=== PATIENT | male | born 1945 | race Caucasian/White ===

== ENCOUNTER → 2019-10-25 | Outpatient (CLI) | payer OTHER ==
[~2019-10-25] MED LIST: FURO40TA5 PO; FURO40TA7 PO; GLIM4TAB36 PO; METO50TA18 PO; RIVA15TA PO; ROSU5TAB PO; SAXA1TBM2 PO
== END | disposition home or self-care (01) ==
LOC: SHCH 11:24
PROVIDERS: ATTEND Internal Medicine Cardiovascular Disease
DX: R06.09 Other forms of dyspnea (principal); I48.0 Paroxysmal atrial fibrillation
CPT/HCPCS: 93306

== ENCOUNTER → 2019-11-01 | Outpatient (CLI) | payer OTHER ==
[~2019-11-01] MED LIST changes: +REGADENOSON 0.4 MG/5 ML PF SYG IVP SCH
== END | disposition home or self-care (01) ==
LOC: SHCH 07:51
PROVIDERS: ATTEND Internal Medicine Cardiovascular Disease
DX: R06.09 Other forms of dyspnea (principal); I48.91 Unspecified atrial fibrillation
CPT/HCPCS: 78452; 93017; 96374; A9500 ×2; J2785

== ENCOUNTER → 2019-12-29 | Outpatient (CLI) | payer OTHER ==
[~2019-12-29] MED LIST changes: -REGADENOSON 0.4 MG/5 ML PF SYG IVP SCH
== END | disposition home or self-care (01) ==
LOC: RAH 09:24
PROVIDERS: ATTEND Urology
DX: K80.20 Calculus of gallbladder without cholecystitis without obstruction (principal); K59.00 Constipation, unspecified; I70.0 Atherosclerosis of aorta; C64.1 Malignant neoplasm of right kidney, except renal pelvis; Z90.5 Acquired absence of kidney
CPT/HCPCS: 74176

== ENCOUNTER 2020-01-16 15:39 | Inpatient (IN) | payer OTHER ==
[~2020-01-16] VITALS: Ht 177.8 cm; Wt 103.8 kg
[2020-01-16] MEDS ORDERED: ASPIRIN 325 MG TABLET ONE (15:56)
[2020-01-16 16:10] LABS: BASOPHILS % (AUTO) 0.5 % (0.0-5.0); EOSINOPHILS % (AUTO) 2.9 % (0.0-8.0); HEMATOCRIT 37.2 % (42-54); LYMPHOCYTES % (AUTO) 23.2 % (21.0-51.0); MEAN CORPUSCULAR HEMOGLOBIN 30.4 pg (27.0-33.0); MEAN CORPUSCULAR HGB CONC 32.8 g/dL (32.0-36.0); MEAN CORPUSCULAR VOLUME 92.8 fL (79-99); MONOCYTES % (AUTO) 10.4 % (3.0-13.0); NEUTROPHILS % (AUTO) 62.6 % (40.0-77.0); PLATELET COUNT (AUTO) 183 K/uL (130-400); RED BLOOD CELL COUNT(AUTO) 4.01 MIL/uL (4.50-6.20); RED CELL DISTRIBUTION WIDTH 13.5 % (11.0-15.5)
[2020-01-16 16:28] LABS: CREATININE 2.5 mg/dL (0.5-1.5); POTASSIUM 5.7 mmol/L (3.5-5.1)
[2020-01-16 16:31] LABS: INR 1.07 (0.85-1.15); PROTHROMBIN TIME 11.5 SEC (9.6-11.6)
[2020-01-16 16:32] LABS: ALBUMIN 4.8 g/dL (3.5-5.0); BILIRUBIN,TOTAL 0.9 mg/dL (0.2-1.0); TOTAL PROTEIN, SERUM 7.7 g/dL (6.0-8.3)
[2020-01-16 17:54] LABS: B-TYPE NATRIURETIC PEPTIDE 124 pg/mL (0-100)
[2020-01-16] MEDS ORDERED: NITROGLYCERIN 1GM/1 INCH PACKET TD ONE (18:55)
[2020-01-16] MEDS ORDERED: ONDANSETRON HCL 4 MG/2 ML VIAL IVP PRN (19:00)
[2020-01-16] MEDS ORDERED: ACETAMINOPHEN 325 MG TAB PO PRN (19:00)
[2020-01-16] MEDS ORDERED: HYDRALAZINE HCL 20 MG/ML VIAL IV PRN (19:00)
[2020-01-16] MEDS ORDERED: SODIUM CHLORIDE 0.9% 1000ML 1,000 ML IV SCH (19:00)
[2020-01-16] MEDS ORDERED: NITROGLYCERIN 1GM/1 INCH PACKET TD SCH (19:00)
[2020-01-16] MEDS ORDERED: ENOXAPARIN SODIUM 100 MG/1 ML SQ SCH (21:00)
[2020-01-17 00:02] LABS: APPEARANCE,URINE SLIGHTLY CLOUDY (CLEAR); BILIRUBIN,URINE Moderate (NEGATIVE); COLOR,URINE Dark Yellow (YELLOW); GLUCOSE, URINE (UA) Negative (NEGATIVE); KETONES,URINE 15 mg/dL (NEGATIVE); LEUKOCYTE ESTERASE ,URINE Moderate (NEGATIVE); NITRATE,URINE Negative (NEGATIVE); OCCULT BLOOD,URINE Negative (NEGATIVE); PROTEIN,URINE POS 1+ mg/dL (NEGATIVE)
[2020-01-17 00:16] LABS: BACTERIA,URINE None Seen /HPF (None Seen); MUCUS,URINE Rare LPF (None Seen); RBC,URINE None Seen /HPF (0-1); SQUAMOUS EPITHELIAL CELL,UR Few /HPF (0-2)
[2020-01-17 05:16] LABS: CREATININE 2.4 mg/dL (0.5-1.5); POTASSIUM 5.7 mmol/L (3.5-5.1)
[2020-01-17 05:21] LABS: ALBUMIN 4.2 g/dL (3.5-5.0); TOTAL PROTEIN, SERUM 6.7 g/dL (6.0-8.3)
[2020-01-17 05:31] LABS: BASOPHILS % (AUTO) 0.5 % (0.0-5.0); EOSINOPHILS % (AUTO) 3.2 % (0.0-8.0); HEMATOCRIT 35.1 % (42-54); LYMPHOCYTES % (AUTO) 26.9 % (21.0-51.0); MEAN CORPUSCULAR HEMOGLOBIN 30.7 pg (27.0-33.0); MEAN CORPUSCULAR HGB CONC 32.8 g/dL (32.0-36.0); MEAN CORPUSCULAR VOLUME 93.9 fL (79-99); MONOCYTES % (AUTO) 12.6 % (3.0-13.0); NEUTROPHILS % (AUTO) 56.5 % (40.0-77.0); PLATELET COUNT (AUTO) 149 K/uL (130-400); RED BLOOD CELL COUNT(AUTO) 3.74 MIL/uL (4.50-6.20); RED CELL DISTRIBUTION WIDTH 13.5 % (11.0-15.5); WHITE BLOOD COUNT (AUTO) 9.5 K/uL (4.8-10.8)
[2020-01-17] MEDS ORDERED: LINA1TAB7 PO (08:22)
[2020-01-17] MEDS ORDERED: AMLO-257 PO (08:22)
[2020-01-17 08:45] VITALS: BP 133/60
[2020-01-17] MEDS ORDERED: ASPIRIN 81MG TAB.CHEW PO SCH (09:00)
[2020-01-17] MEDS ORDERED: SODIUM POLYSTYRENE SULFONATE 15 GM/60 ML ML PO SCH (09:15)
[2020-01-17] MEDS: FAMOTIDINE 20MG TAB 20 MG TAB PO SCH (09:32)
[2020-01-17] MEDS: SODIUM CHLORIDE 0.9% 1000ML 1,000 ML IV SCH (09:34)
[2020-01-17] MEDS ORDERED: DEXTROSE 50%-WATER 50 ML DISP.SYRIN IV PRN (11:30)
[2020-01-17] MEDS ORDERED: GLUCAGON 1MG KIT 1 MG ML IM PRN (11:30)
[2020-01-17] MEDS: INSULIN HUMULIN R 100 UNIT/ML 3ML SQ SCH ×3 (11:30→20:55)
--- NOTE | 2020-01-17 11:40 | NUR ---
DCP CM met with pt and spouse in room, discussed dc plans. Pt is independent prior to admission, lives at home with spouse. Denies any equipments/services. Feels safe to go back home, still drives, spouse able to assist with transportation and needs as necessary. DC plan to home once stable. CM to cont to follow up. Addendum: 01/17/20 at 1141 by GENARO CHOI LVN CM Amended: Links added.
[2020-01-17] MEDS ORDERED: NITROGLYCERIN 1GM/1 INCH PACKET TD SCH (12:00)
[2020-01-17 12:03] VITALS: BP 132/65
--- NOTE | 2020-01-17 14:58 | NUR ---
MD NOTIFICATION DR COSBY NOTIFIED PT HAVING ARRHYTHMIAS. PT SITTING ON EDGE OF BED. ASYMPTOMATIC. NO SOB. NO DISTRESS NOTED.
--- NOTE | 2020-01-17 15:25 | NUR ---
MD NOTIFICATION CALLBACK RECEIVED FROM DR COSBY. UPDATED ON PT'S CURRENT STATUS.
--- NOTE | 2020-01-17 16:02 | NUR ---
MD NOTIFICATION DR COSBY NOTIFIED OF POTASSIUM RECHECK RESULTS.
[2020-01-17 16:57] VITALS: BP 135/71
[2020-01-17 19:35] VITALS: BP 135/56
[2020-01-17] MEDS: FUROSEMIDE 40 MG TABLET PO SCH (19:39)
--- NOTE | 2020-01-17 19:40 | NUR ---
MEDS SHIFT ASSESSMENT DONE. PLEASE REFER TO CHART. DUE MEDS ADMINISTERED, TOLERATED WELL. PT CLAIMS HE HAS NOT MOVED HIS BOWELS FOR 2 DAYS. PRUNE JUICE GIVEN. KEPT COMFORTABLE IN BED. CALL LIGHT WITHIN REACH. WILL MONITOR PT. Addendum: 01/17/20 at 2312 by ARNOL CROCKER RN RN Amended: Links added.
[2020-01-17] MEDS ORDERED: LACTULOSE 20 GM/30 ML UDCUP PO PRN (20:00)
[2020-01-17] MEDS ORDERED: RIVAROXABAN 15 MG TABLET PO SCH (21:00)
--- NOTE | 2020-01-17 22:00 | NUR ---
HR PT HAD BEEN HAVING ERRATIC HR DURING THE DAY SHIFT. FROM SB TO ST WITH PAUSES. WENT TO CHECK ON PT AND PT IS RESTING IN BED TRYING TO SLEEP. NO DISTRESS NOTED. NO COMPLAINTS REPORTED. WILL MONITOR CLOSELY.
[2020-01-17 23:30] VITALS: BP 131/80
--- NOTE | 2020-01-18 02:00 | NUR ---
ROUNDS PT SLEPT AT INTERVALS. NO DISTRESS NOTED. STILL WITH ERRATIC HEART RHYTHM, WITH HR FROM 40'S TO 140'S BPM, NON-SUSTAINING. BUT IS ASYMPTOMATIC. WILL MONITOR CLOSELY.
[2020-01-18] MEDS: DILTIAZEM HCL 5 MG/ML 10 ML VIAL IV PRN (02:45)
[2020-01-18] MEDS: SODIUM CHLORIDE 0.9% 1000ML 1,000 ML IV SCH ×2 (03:19→12:47)
[2020-01-18 03:31] VITALS: BP 157/71
--- NOTE | 2020-01-18 05:23 | NUR ---
ROUNDS PT RESTING IN BED, SITTING DOWN ON THE SIDE. DENIES ANY CONCERNS AT THIS TIME. PT SLEPT AT INTERVALS DURING THE SHIFT. FOR MORE CARE.
[2020-01-18 05:24] LABS: HEMATOCRIT 33.3 % (42-54); MEAN CORPUSCULAR HEMOGLOBIN 30.1 pg (27.0-33.0); MEAN CORPUSCULAR HGB CONC 32.7 g/dL (32.0-36.0); RED BLOOD CELL COUNT(AUTO) 3.62 MIL/uL (4.50-6.20); RED CELL DISTRIBUTION WIDTH 13.3 % (11.0-15.5); WHITE BLOOD COUNT (AUTO) 6.9 K/uL (4.8-10.8)
[2020-01-18 06:01] LABS: CREATININE 1.8 mg/dL (0.5-1.5); MAGNESIUM 2.1 mg/dL (1.80-2.40); POTASSIUM 4.7 mmol/L (3.5-5.1); THYROID STIMULATING HORMONE 3.98 uIU/mL (0.36-3.74); URIC ACID 8.6 mg/dL (2.6-7.2)
[2020-01-18] MEDS: INSULIN HUMULIN R 100 UNIT/ML 3ML SQ SCH ×4 (06:33→20:04)
[2020-01-18 08:58] VITALS: BP 128/75
[2020-01-18] MEDS: FUROSEMIDE 40 MG TABLET PO SCH ×2 (09:27→20:04)
[2020-01-18] MEDS: FAMOTIDINE 20MG TAB 20 MG TAB PO SCH (09:27)
[2020-01-18] MEDS: GLIMEPIRIDE 2 MG TABLET PO SCH (09:27)
[2020-01-18] MEDS: AMLODIPINE BESYLATE 5 MG TAB PO SCH (09:28)
[2020-01-18 12:10] VITALS: BP 130/85
[2020-01-18 16:30] VITALS: BP 130/67
--- NOTE | 2020-01-18 16:53 | NUR ---
NUTRITION EDUCATION [facility] provided Dialysis/Low Potassium Nutrition Education. RD reviewed reference materials and handouts and reviewed Nutrition recommendations and answered all of Pt questions. Pt verbalized understanding. Addendum: 01/18/20 at [address] RD Amended: Links added.
[2020-01-18 19:46] VITALS: BP 109/81
[2020-01-18] MEDS: DOCUSATE SODIUM 100 MG CAP PO SCH (20:03)
[2020-01-18 23:49] VITALS: BP 113/83
[2020-01-19] VITALS (12 sets, daily range): BP systolic 91–142; BP diastolic 43–78
--- NOTE | 2020-01-19 02:00 | NUR ---
PATIENT FLUTTER IN 160S SUSTAINING PER TELE MONITOR.
--- NOTE | 2020-01-19 02:25 | NUR ---
SPOKE WITH DR JARQUIN INFORMED PATIENT HEART RATE IN 140S A FLUTTER. PER BRITTON GIVE 5MG DILTIAZEM Q 5MIN UNTIL PATIENT HR IS < 120
[2020-01-19] MEDS ORDERED: DILTIAZEM HCL 125 MG/25 ML VIAL IV ONE (02:27)
[2020-01-19] MEDS: DILTIAZEM HCL 5 MG/ML 10 ML VIAL IV PRN ×2 (02:50→03:00)
--- NOTE | 2020-01-19 03:55 | NUR ---
INFORMED HILMY PATIENT HR REMAINS 130S AFTER DILTIAZEM PUSH. PER HILMY START PATIENT ON CARDIZEM DRIP
[2020-01-19] MEDS ORDERED: DILTIAZEM HCL 125 MG/25 ML 125 MG in SODIUM CHLORIDE 0.9% 100 ML IV PRN (04:00)
[2020-01-19 05:59] LABS: HEMATOCRIT 36.7 % (42-54); MEAN CORPUSCULAR HEMOGLOBIN 30.3 pg (27.0-33.0); MEAN CORPUSCULAR HGB CONC 33.2 g/dL (32.0-36.0); MEAN CORPUSCULAR VOLUME 91.3 fL (79-99); RED BLOOD CELL COUNT(AUTO) 4.02 MIL/uL (4.50-6.20); RED CELL DISTRIBUTION WIDTH 13.4 % (11.0-15.5); WHITE BLOOD COUNT (AUTO) 7.7 K/uL (4.8-10.8)
[2020-01-19 06:09] LABS: INR 0.99 (0.85-1.15); PARTIAL THROMBOPLASTIN TIME 26.6 SEC (26.3-35.5); PROTHROMBIN TIME 10.7 SEC (9.6-11.6)
[2020-01-19] MEDS: INSULIN HUMULIN R 100 UNIT/ML 3ML SQ SCH ×4 (06:11→22:07)
[2020-01-19 06:13] LABS: CREATININE 1.5 mg/dL (0.5-1.5); POTASSIUM 4.3 mmol/L (3.5-5.1)
[2020-01-19] MEDS: SODIUM CHLORIDE 0.9% 1000ML 1,000 ML IV SCH ×2 (08:33→17:13)
[2020-01-19] MEDS: ATORVASTATIN CALCIUM 10 MG TABLET PO SCH ×2 (09:00→21:53)
[2020-01-19] MEDS: FUROSEMIDE 40 MG TABLET PO SCH ×2 (09:00→21:55)
[2020-01-19] MEDS: AMLODIPINE BESYLATE 5 MG TAB PO SCH (09:00)
[2020-01-19] MEDS ORDERED: VANCOMYCIN 1GM+NS 250ML 250 ML IV PRN (12:45)
[2020-01-19] MEDS ORDERED: BUPIVACAINE/PF 0.25% 30ML VIAL IJ ONE (13:59)
[2020-01-19] MEDS ORDERED: MIDAZOLAM HCL 1 MG/ML 2ML VIAL ONE ×3 (13:59→15:19)
[2020-01-19] MEDS ORDERED: MEPERIDINE-PF 25 MG/ML SYG ONE ×3 (13:59→15:19)
[2020-01-19] MEDS ORDERED: VANCOMYCIN 1GM+NS 250ML 500 ML IV ONE (14:00)
[2020-01-19] MEDS ORDERED: IODIXANOL 320 MG/ML 100 ML VIAL ONE (14:00)
[2020-01-19] MEDS ORDERED: LIDOCAINE HCL 1% MDV 50ML VIAL ONE (14:00)
[2020-01-19] MEDS ORDERED: ACETAMINOPHEN-CODEINE 300/30MG TAB PO PRN (16:30)
[2020-01-19] MEDS ORDERED: METOPROLOL TARTRATE 25 MG TAB ONE (17:06)
[2020-01-19] MEDS: GLIMEPIRIDE 2 MG TABLET PO SCH (17:12)
[2020-01-19] MEDS: FAMOTIDINE 20MG TAB 20 MG TAB PO SCH (17:12)
[2020-01-19] MEDS: DOCUSATE SODIUM 100 MG CAP PO SCH ×2 (17:12→21:53)
[2020-01-19] MEDS: METOPROLOL TARTRATE 25 MG TAB PO SCH ×2 (21:00→21:54)
[2020-01-20 03:51] VITALS: BP 132/77
[2020-01-20 05:34] LABS: HEMATOCRIT 36.4 % (42-54); MEAN CORPUSCULAR HEMOGLOBIN 30.9 pg (27.0-33.0); MEAN CORPUSCULAR HGB CONC 33.2 g/dL (32.0-36.0); MEAN CORPUSCULAR VOLUME 92.9 fL (79-99); PLATELET COUNT (AUTO) 135 K/uL (130-400); RED BLOOD CELL COUNT(AUTO) 3.92 MIL/uL (4.50-6.20); RED CELL DISTRIBUTION WIDTH 13.2 % (11.0-15.5)
[2020-01-20 05:46] LABS: CREATININE 1.5 mg/dL (0.5-1.5); POTASSIUM 4.6 mmol/L (3.5-5.1)
[2020-01-20 05:54] LABS: BAND NEUTROPHILS % (MANUAL) 1 % (0-2); EOSINOPHILS % (MANUAL) 3 % (1-6); LYMPHOCYTES % (MANUAL) 18 % (22-44); MAN.DIFF COMMENT-IMPRESSION MANUAL DIFFERENTIAL; MONOCYTES % (MANUAL) 12 % (2-9); REACTIVE LYMPHOCYTES 2 % (0-0); SEGMENTED NEUTROPHILS % 64 % (40-70)
[2020-01-20] MEDS: INSULIN HUMULIN R 100 UNIT/ML 3ML SQ SCH ×4 (06:32→20:19)
[2020-01-20] MEDS: FUROSEMIDE 40 MG TABLET PO SCH ×2 (08:23→20:29)
[2020-01-20] MEDS: FAMOTIDINE 20MG TAB 20 MG TAB PO SCH (08:23)
[2020-01-20] MEDS: DOCUSATE SODIUM 100 MG CAP PO SCH ×2 (08:23→20:29)
[2020-01-20] MEDS: METOPROLOL TARTRATE 25 MG TAB PO SCH ×2 (08:24→20:28)
[2020-01-20] MEDS: AMLODIPINE BESYLATE 5 MG TAB PO SCH (08:24)
[2020-01-20] MEDS: GLIMEPIRIDE 2 MG TABLET PO SCH (08:24)
[2020-01-20 08:59] VITALS: BP 120/73
[2020-01-20] MEDS ORDERED: METOPROLOL TARTRATE 50 MG TAB PO SCH ×3 (09:30→21:00)
[2020-01-20] MEDS ORDERED: DRONEDARONE HYDROCHLORIDE 400 MG TABLET PO SCH (11:00)
[2020-01-20] MEDS: APIXABAN 5 MG TABLET PO SCH ×2 (11:28→20:29)
[2020-01-20 12:09] VITALS: BP 135/86
[2020-01-20 16:11] VITALS: BP 120/84
[2020-01-20 19:32] VITALS: BP 124/67
[2020-01-20] MEDS: DRONEDARONE HYDROCHLORIDE 400 MG TABLET PO SCH (20:28)
[2020-01-20] MEDS: SODIUM CHLORIDE 0.9% 1000ML 1,000 ML IV SCH (20:31)
[2020-01-20 23:35] VITALS: BP 134/85
[2020-01-21 03:55] VITALS: BP 101/43
[2020-01-21 04:44] LABS: HEMATOCRIT 34.5 % (42-54); MEAN CORPUSCULAR HEMOGLOBIN 30.2 pg (27.0-33.0); MEAN CORPUSCULAR VOLUME 91.5 fL (79-99); RED BLOOD CELL COUNT(AUTO) 3.77 MIL/uL (4.50-6.20); RED CELL DISTRIBUTION WIDTH 13.3 % (11.0-15.5); WHITE BLOOD COUNT (AUTO) 7.4 K/uL (4.8-10.8)
[2020-01-21 05:29] LABS: CREATININE 1.7 mg/dL (0.5-1.5)
[2020-01-21] MEDS: INSULIN HUMULIN R 100 UNIT/ML 3ML SQ SCH (05:42)
[2020-01-21 07:00] VITALS: BP 132/79
[2020-01-21] MEDS: GLIMEPIRIDE 2 MG TABLET PO SCH (08:21)
[2020-01-21] MEDS: DRONEDARONE HYDROCHLORIDE 400 MG TABLET PO SCH (08:21)
[2020-01-21] MEDS: AMLODIPINE BESYLATE 5 MG TAB PO SCH (08:21)
[2020-01-21] MEDS: FAMOTIDINE 20MG TAB 20 MG TAB PO SCH (08:22)
[2020-01-21] MEDS: APIXABAN 5 MG TABLET PO SCH (08:22)
[2020-01-21] MEDS: DOCUSATE SODIUM 100 MG CAP PO SCH (08:22)
[2020-01-21] MEDS: METOPROLOL TARTRATE 25 MG TAB PO SCH (08:22)
[2020-01-21] MEDS: FUROSEMIDE 40 MG TABLET PO SCH (08:23)
[2020-01-21 11:00] VITALS: BP 130/75
--- NOTE | 2020-01-21 11:20 | NUR ---
DR. POLLOCK AWARE OF BUN/CR ELEVATED STATES YES, PATIENT ALREADY HAD KIDNEY PROBLEMS I WILL SEE HIM NEXT WEEK. OKAY TO D/C HOME FROM DR. PUENTES STAND POINT.
[2020-01-21] MEDS ORDERED: DRON400T2 PO (12:40)
[2020-01-21] MEDS ORDERED: METO25 PO (12:41)
--- NOTE | 2020-01-21 14:59 | NUR ---
PT D/C HOME USING TEACH BACK TECHNIQUE RE; follow up with your primary doctor in 2-4 days. Follow up with DR. Brito on 02/01/20 at 1045 am. CAll if unable to attend appointment at phone [phone]. Follow up with Dr. Tipton on 01/24/20 at 1100am call if unable to attend appointment at phone [phone]. MAKE SURE TO BRING A MASK AND HOME MEDICATIONS AND INSURANCE TO YOUR APPOINTMENT. IF YOU NOTICE ANY DRAINAGE, BLEEDING, HOT TO THE TOUCH, PAIN OR SWELLING CALL YOUR SURGEON COULD MEAN YOU HAVE AN IFECTION. IF YOU HAVE CHEST PAIN OR SHORTNESS OF BREATH THAT DOES NOT RESOLVE WITH REST CALL 911. MAKE SURE TO KEEP DRESSING DRY AND INTACT IF DRESSING FALLS OFF COVER WITH BANDAID, DO NOT RAISE YOUR ELBOW ABOVE SHOULDER LEVEL NOR ARMS BEHIND YOUR BACK. NO HEAVY LIFTING. S/S TO WATCH FOR AND WHEN TO CALL MD OR 911. PT IS AAOX3, NO DISTRESS, DENIES ANY NEEDS AT THIS TIME, IV TO LEFT A/C AND FORE ARM OUT INTACT, NO BLEEDING, DRESSING TO LEFT CHEST (PM) CHANGED AND DRY INTACT PRIOR TO D/C HOME. AWARE TO TAKE ELIQUIS FOR THIS MORNING ONLY THEN STOP, THEN TO START TAKING XARELTO AGAIN. PER DR. BRITO.
== END 2020-01-21 15:15 | disposition home or self-care (01) | DRG 242 ==
LOC: EDH 15:39 → EDHIP 18:20 → 4DH 01-17 08:45
PROVIDERS: ADMIT Internal Medicine Critical Care Medicine; ATTEND Internal Medicine Critical Care Medicine
PROC: 0JH606Z Insertion of Pacemaker, Dual Chamber into Chest Subcutaneous Tissue and Fascia, Open Approach (ICD-10-PCS; principal; 2020-01-19)
PROC: 02H63JZ Insertion of Pacemaker Lead into Right Atrium, Percutaneous Approach (ICD-10-PCS; 2020-01-19)
PROC: 02HK3JZ Insertion of Pacemaker Lead into Right Ventricle, Percutaneous Approach (ICD-10-PCS; 2020-01-19)
PROC: 02HL3JZ Insertion of Pacemaker Lead into Left Ventricle, Percutaneous Approach (ICD-10-PCS; 2020-01-19)
PROC: B51V1ZZ Fluoroscopy of Other Veins using Low Osmolar Contrast (ICD-10-PCS; 2020-01-19)
DX: I49.5 Sick sinus syndrome (principal); I50.33 Acute on chronic diastolic (congestive) heart failure; D68.59 Other primary thrombophilia; I13.0 Hypertensive heart and chronic kidney disease with heart failure and stage 1 through stage 4 chronic kidney disease, or unspecified chronic kidney disease; N17.9 Acute kidney failure, unspecified; I45.2 Bifascicular block; I47.1 Supraventricular tachycardia; I48.0 Paroxysmal atrial fibrillation; I25.5 Ischemic cardiomyopathy; D64.9 Anemia, unspecified; E11.22 Type 2 diabetes mellitus with diabetic chronic kidney disease; E11.36 Type 2 diabetes mellitus with diabetic cataract; E11.40 Type 2 diabetes mellitus with diabetic neuropathy, unspecified; E11.51 Type 2 diabetes mellitus with diabetic peripheral angiopathy without gangrene; E87.5 Hyperkalemia; I25.10 Atherosclerotic heart disease of native coronary artery without angina pectoris; I42.9 Cardiomyopathy, unspecified; I34.0 Nonrheumatic mitral (valve) insufficiency; M21.961 Unspecified acquired deformity of right lower leg; I87.8 Other specified disorders of veins; N18.9 Chronic kidney disease, unspecified; I25.2 Old myocardial infarction; Z79.01 Long term (current) use of anticoagulants; Z79.84 Long term (current) use of oral hypoglycemic drugs; Z79.899 Other long term (current) drug therapy; Z95.1 Presence of aortocoronary bypass graft; Z95.0 Presence of cardiac pacemaker; Z91.11 Patient's noncompliance with dietary regimen; Z91.19 Patient's noncompliance with other medical treatment and regimen; Z90.5 Acquired absence of kidney; Z85.528 Personal history of other malignant neoplasm of kidney; Z82.49 Family history of ischemic heart disease and other diseases of the circulatory system
CPT/HCPCS: 33208; 33225; 36415; 71045; 80048; 80053; 81001; 82550; 82570; 82948; 83735; 83880; 84100; 84132; 84156; 84439; 84443; 84484; 84550; 85025; 85027; 85610; 85730; 87088; 93005; 99156; 99157; C1769; G0378; J1650; J1815; J2175; J2250; J3370; J3490; J7030; Q9967